=== PATIENT | male | born 1965 | race African-American/Black ===

== ENCOUNTER 2016-10-28 12:25 | Day surgery (SDC) | payer OTHER ==
[~2016-10-28] VITALS: Ht 185.4 cm; Wt 122.1 kg
[2016-10-28] MEDS ORDERED: LISINOPRIL (13:54)
[2016-10-28 13:56] VITALS: Ht 185.4 cm; Wt 122.1 kg
[2016-10-28 14:23] VITALS: BP 141/81; PULSE 78; RESP 20
[2016-10-28] MEDS ORDERED: PROPOFOL 40 ML ONE (15:02)
[2016-10-28 15:56] VITALS: BP 131/80; PULSE 74; RESP 24
--- NOTE | 2016-10-28 18:21 | GILP ---
DATE OF PROCEDURE: NAME OF PROCEDURE: Colonoscopy. SURGEON: Renuka Farnsworth MD PREOPERATIVE DIAGNOSIS: Screening colonoscopy. POSTOPERATIVE DIAGNOSES 1. Colonoscopy all the way to the cecum. 2. Internal hemorrhoids. 3. No colon neoplasm was identified. INDICATION FOR THE PROCEDURE: Mr. Nadir Duarte is a 51-year-old male patient who was scheduled for s creening colonoscopy. The procedure and possible complications are well explained to the patient. He understood and conse nted to the procedure. DESCRIPTION OF PROCEDURE: Under the influence of anesthesia, the colonoscope was carefully introduc ed in the rectum and under direct vision, it was advanced all the way to the cecum. FINDINGS: The patient had internal hemorrhoids. No colon neoplasm was identified. He tolerated the procedure very well and there was no complication from the procedure. At the end o f the procedure, he was awake with stable vital signs, and he was discharged home to the care of his family. IMPRESSION: 1. Colonoscopy all the way to the cecum. 2. Internal hemorrhoids. 3. No colon neoplasm was identified. PLAN: Next screening colonoscopy in 10 years. Dictated By: RENUKA BERGER/FIONA Conf#: [id number] DID#: [id number]
== END 2016-10-28 16:07 | disposition home or self-care (01) ==
LOC: GIL 12:25
PROVIDERS: ATTEND Internal Medicine Gastroenterology
DX: Z12.11 Encounter for screening for malignant neoplasm of colon (principal); K64.8 Other hemorrhoids; I10 Essential (primary) hypertension